=== PATIENT | male | born 1950 | race Caucasian/White ===

== ENCOUNTER 2023-12-03 14:45 | Outpatient (AMB) | payer MEDICARE, SELFPAY ==
[2023-12-03 15:26] VITALS: BP 108/62; PULSE 87; RESP 13; O2SAT 98; BMI 23.1
--- NOTE | 2023-12-03 15:26 | A.OFFPC_ITS ---
Vital Signs 12/03/23 15:26 Height 5 ft 6 in Weight 143 lb 6 oz BMI 23.1 BP 108/62 Blood Pressure Location Rt brachial Position Sitting Respiration 13 Pulse 87 Pulse Source Pulse Oximeter Pulse Oximetry (%) 98 Oxygen Delivery Method Room Air Intake Visit Reasons: Establish Care never been seen Intake Note: Patient is here to establish care. Patient did not express any concerns. 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 Offset Required: No Accompanied by: Self / Same As Patient Allergies No Known Allergies Allergy (Verified 12/03/23 15:29) Tobacco use date assessed: 12/03/23 Fall risk assessment: No Falls in past year Dental Screening Dental Screen Date: 12/03/23 Did you have a dental visit in the last 12 months?: Yes Did you have a dental problem in the last 6 months where you did not have access to dental care?: No Was dental information given to patient?: Patient has dentist HPI HPI Comments History of Present Illness Details 73 year old male with a past medical his tory of prostate cancer presenting to establish care. Transferring from [facility] No current issues. Feeling well. UTD physical exam. UTD psa testing ROS CONSTITUTIONAL: Denies weight loss, fever and chills. HEENT: Denies changes in vision and hearing. RESPIRATORY: Denies SOB and cough. CV: Denies palpitations and CP GI: Denies abdominal pain, nausea, vomiting and diarrhea. : Denies dysuria and urinary frequency. MSK: Denies new myalgia and joint pain. SKIN: Denies rash and pruritus. NEUROLOGICAL: Denies headache PSYCHIATRIC: Denies recent changes in mood. PHYSICAL EXAM: GENERAL: Alert and oriented x 3. NAD EYES: EOMI. Anicteric. HENT: Moist mucous membranes. No scleral icterus. No cervical lymphadenopathy. LUNGS: Clear to auscultation bilaterally. CARDIOVASCULAR: Regular rate and rhythm. No murmur. No JVD. ABDOMEN: Soft, non-tender +bs EXTREMITIES: No edema. Non-tender. SKIN: No rashes or lesions. Warm. NEUROLOGIC: No focal neurological deficits. CN II-XII grossly intact PSYCHIATRIC: Cooperative. Appropriate mood and affect [facility] Medical History (Updated 12/08/23 @ 10:09 by Genia Reyes MD) Prostate cancer Chronic GERD Surgical History History of hernia repair History of prostate surgery Family History Other No pertinent family history Social History Household Members: Spouse Housing: House 75 years or older and lives alone: No Alcohol intake: current Alcohol intake frequency: holidays/special occasions only Patient Tobacco Use Status: Never used Tobacco e-Cigarette/Vaping Use: Never Used service: No Current occupational status: retired Cognitive needs: No Hearing needs: No Vision needs: No Questionnaire PHQ-9 Over the last 2 weeks, how often have you been bothered by any of the following problems? 1. Little interest or pleasure in doing things: not at all 2. Feeling down, depressed, or hopeless: not at all 3. Trouble falling or staying asleep, or sleeping too much: not at all 4. Feeling tired or having little energy: not at all 5. Poor appetite or overeating: not at all 6. Feeling bad about yourself - or that you are a failure or have let yourself or your family down: not at all 7. Trouble concentrating on things, such as reading the newspaper or watching television: not at all 8. Moving or speaking so slowly that other people could have noticed. Or the opposite - being so fidgety or restless that you have been moving around a lot more than usual: not at all 9. Thoughts that you would be better off or of hurting yourself in some way: not at all Total score: 0 Depression Screening Interpretation: Negative Depression Screening Done: Yes 74947 - PHQ-9 Billing: Yes Source: Developed by Drs. Jose Roberto Miranda, Magui Bob, Luis Galindo and colleagues, with an educational davian from [employer]. Thrive Questionnaire Date Thrive assessed: 12/03/23 I am a: Patient What is your living situation today?: I have a steady place to live Within the past 12 months, did the food you bought not last and you didn't have the money to get more?: Never true Within the past 12 months, did you worry whether your food would run out before you got money to buy more?: Never true Do you have trouble paying for medicines?: No Do you have trouble getting transportation to medical appointments?: No Do you have trouble paying your heating and electricity bill?: No Do you have trouble taking care of your child, family member or friend?: No Do you have trouble with day-to-day activities such as bathing, preparing meals, shopping, managing finances, etc.?: No Are you currently unemployed and looking for a job?: No Are you interested in more education?: No Please select the resources that you would like help with: None Currently or been in a relationship where the following occur: No concerns reported THRIVE Score: 0 AUDIT C Alcohol Use Questionnaire (AUDIT-C) 1. How often do you have a drink containing alcohol?: Never 3. How often do you have six or more drinks on one occasion?: Never Total Score: 0 DORIS-7 AMB Questionnaire DORIS-7 Date DORIS - 7 assessed: 12/03/23 Feeling nervous, anxious, or on edge: 0 = Not at all Not being able to stop or control worryin = Not at all Worrying too much about different things: 0 = Not at all Trouble relaxin = Not at all Being so restless that it is hard to sit still: 0 = Not at all Becoming easily annoyed or irritable: 0 = Not at all Feeling afraid as if something awful might happen: 0 = Not at all Total DORIS-7 score (0-4 normal; 5-9 mild; 10-14 moderate; 15-21 severe): 0 Source: Developed by Drs. Jose Roberto Miranda, Magui Bob, Luis Galindo and colleagues, with an educational davian from [employer]. DORIS-7 Assessment Billing DORIS-7 Assessment Tool: DORIS-7 Assessment 09372 Physical exam (Primary Care) Vital Signs: Last Vital Signs Pulse 87 12/03/23 15:26 Resp 13 12/03/23 15:26 BP 108/62 12/03/23 15:26 Pulse Ox 98 12/03/23 15:26 Oxygen Delivery Method Room Air 12/03/23 15:26 BMI result Body Mass Index 23.1 Tobacco/Smoking Status: Tobacco use Status Tobacco use date assessed 12/03/23 12/03/23 15:34 Patient Tobacco Use Status Never used Tobacco 12/03/23 15:38 e-Cigarette/Vaping Use Never Used 12/03/23 15:38 PHQ-9: PHQ-9 Score PHQ-9: Total score 0 12/03/23 16:20 Depression Screening Interpretation: Negative Thrive Assessment: Date of Thrive Assessment Date Thrive assessed 12/03/23 12/03/23 15:34 Currently or been in a relationship where the following occur: No concerns reported Assessment and Plan Assessment & Plan (1) History of prostate cancer: Code(s): Z85.46 - Personal history of malignant neoplasm of prostate Plan: monitor psa. utd (2) Chronic GERD: Code(s): K21.9 - Gastro-esophageal reflux disease without esophagitis (3) Encounter to establish care: Code(s): Z76.89 - Persons encountering health services in other specified circumstances Plan 73 y/o to establish care. Past medical, surgical, social and family history reviewed. chart updated Coding Level of Care Code New Pt Level 4 (97460) Diagnoses History of prostate cancer Z85.46 Chronic GERD K21.9 Encounter to establish care Z76.89 Additional Codes DORIS-7 Assessment Billing - DORIS-7 Assessment Tool: DORIS-7 Assessment 43764 ([id number])
== END 2023-12-03 16:34 | disposition home or self-care (01) ==
PROVIDERS: PCP Internal Medicine; Visit Provider Internal Medicine
DX: K21.9 Gastro-esophageal reflux disease without esophagitis (principal); Z85.46 Personal history of malignant neoplasm of prostate; Z76.89 Persons encountering health services in other specified circumstances
CPT/HCPCS: 99203

== ENCOUNTER 2024-11-02 15:54 | Outpatient (AMB) | payer MEDICARE, SELFPAY ==
--- NOTE | 2024-11-02 16:00 | A.OFFPC_ITS ---
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 Required: No Allergies No Known Allergies Allergy (Verified 11/02/24 16:01) Tobacco use date assessed: 11/02/24 Fall risk assessment: No Falls in past year Last assessed Fall Risk: 11/02/24 Dental Screening Dental Screen Date: 11/02/24 Did you have a dental visit in the last 12 months?: Yes Did you have a dental problem in the last 6 months where you did not have access to dental care?: No Was dental information given to patient?: Patient has dentist HPI HPI Comments History of Present Illness Details 74 year old male with a past medical his tory of prostate cancer, neck pain, prediabetes, hyperlipidemia presenting for follow up Due for labs. History of prediabetes Follows with dermatology, Dr Hills. History of prostate cancer s/p prostatectomy 2008. Td due 12/2030 Colonoscopy 03/13/2023-[facility] ROS CONSTITUTIONAL: Denies weight loss, fever and chills. HEENT: Denies changes in vision and hearing. RESPIRATORY: Denies SOB and cough. CV: Denies palpitations and CP GI: Denies abdominal pain, nausea, vomiting and diarrhea. : Denies dysuria and urinary frequency. MSK: Denies new myalgia and joint pain. SKIN: Skin tag right scrotum NEUROLOGICAL: Denies headache PSYCHIATRIC: Denies recent changes in mood. PHYSICAL EXAM: GENERAL: Alert and oriented x 3. NAD EYES: EOMI. Anicteric. HENT: Moist mucous membranes. No scleral icterus. No cervical lymphadenopathy. LUNGS: Clear to auscultation bilaterally. CARDIOVASCULAR: Regular rate and rhythm. No murmur. No JVD. ABDOMEN: Soft, non-tender +bs EXTREMITIES: No edema. Non-tender. SKIN: No rashes or lesions. Warm. NEUROLOGIC: No focal neurological deficits. CN II-XII grossly intact PSYCHIATRIC: Cooperative. Appropriate mood and affect [facility] Medical History Prostate cancer Chronic GERD Surgical History H/O colonoscopy History of hernia repair History of prostate surgery Family History Other No pertinent family history Social History Household Members: Spouse Housing: House 75 years or older and lives alone: No Alcohol intake: current Alcohol intake frequency: holidays/special occasions only Patient Tobacco Use Status: Never used Tobacco e-Cigarette/Vaping Use: Never Used Second Hand Smoke Exposure: Yes (past as a kid) service: No Current occupational status: retired Cognitive needs: No Hearing needs: No Vision needs: No Questionnaire PHQ-9 Over the last 2 weeks, how often have you been bothered by any of the following problems? 1. Little interest or pleasure in doing things: not at all 2. Feeling down, depressed, or hopeless: not at all 3. Trouble falling or staying asleep, or sleeping too much: not at all 4. Feeling tired or having little energy: not at all 5. Poor appetite or overeating: not at all 6. Feeling bad about yourself - or that you are a failure or have let yourself or your family down: not at all 7. Trouble concentrating on things, such as reading the newspaper or watching television: not at all 8. Moving or speaking so slowly that other people could have noticed. Or the opposite - being so fidgety or restless that you have been moving around a lot m ore than usual: not at all 9. Thoughts that you would be better off or of hurting yourself in some way: not at all Total score: 0 Depression Screening Interpretation: Negative Depression Screening Done: Yes 76245 - PHQ-9 Billing: Yes Source: Developed by Drs. Jose Roberto Miranda, Magui Bob, Luis Galindo and colleagues, with an educational davian from [employer]. Thrive Questionnaire Date Thrive assessed: 10/26/24 I am a: Patient What is your living situation today?: I have a steady place to live Within the past 12 months, did the food you bought not last and you didn't have the money to get more?: Never true Within the past 12 months, did you worry whether your food would run out before you got money to buy more?: Never true Do you have trouble paying for medicines?: No Do you have trouble getting transportation to medical appointments?: No Do you have trouble paying your heating and electricity bill?: No Do you have trouble taking care of your child, family member or friend?: No Do you have trouble with day-to-day activities such as bathing, preparing meals, shopping, managing finances, etc.?: No Are you currently unemployed and looking for a job?: No Are you interested in more education?: No Please select the resources that you would like help with: None Currently or been in a relationship where the following occur: No concerns reported THRIVE Score: 0 AUDIT C Alcohol Use Questionnaire (AUDIT-C) 1. How often do you have a drink containing alcohol?: 2-3 times a week 2. How many drinks containing alcohol do you have on a typical day when you are drinking?: 1 or 2 3. How often do you have six or more drinks on one occasion?: Never Total Score: 3 DORIS-7 AMB Questionnaire DORIS-7 Date DORIS - 7 assessed: 11/02/24 Feeling nervous, anxious, or on edge: 0 = Not at all Not being able to stop or control worryin = Not at all Worrying too much about different things: 0 = Not at all Trouble relaxin = Not at all Being so restless that it is hard to sit still: 0 = Not at all Becoming easily annoyed or irritable: 0 = Not at all Feeling afraid as if something awful might happen: 0 = Not at all Total DORIS-7 score (0-4 normal; 5-9 mild; 10-14 moderate; 15-21 severe): 0 Source: Developed by Drs. Jose Roberto Miranda, Magui Bob, Luis Galindo and colleagues, with an educational davian from [employer]. DORIS-7 Assessment Billing DORIS-7 Assessment Tool: DORIS-7 Assessment 79189 Physical exam (Primary Care) Vital Signs: Last Vital Signs Pulse 86 11/02/24 16:03 Resp 12 11/02/24 16:03 BP 136/56 L 11/02/24 16:03 Pulse Ox 96 11/02/24 16:03 Oxygen Delivery Method Room Air 11/02/24 16:03 BMI result Body Mass Index 22.8 Tobacco/Smoking Status: Tobacco use Status Tobacco use date assessed 11/02/24 11/02/24 16:12 Patient Tobacco Use Status Never used Tobacco 11/02/24 16:12 e-Cigarette/Vaping Use Never Used 11/02/24 16:12 PHQ-9: PHQ-9 Score PHQ-9: Total score 0 11/02/24 16:19 Depression Screening Interpretation: Negative Thrive Assessment: Date of Thrive Assessment Date Thrive assessed 10/26/24 11/02/24 16:12 Currently or been in a relationship where the following occur: No concerns reported Coding Level of Care Code Est Pt Prev Care >65y(89509) Diagnoses Prediabetes R73.03 Hyperlipidemia, unspecified hyperlipidemia type E78.5 Hyperlipidemia type: unspecified Chronic GERD K21.9 History of prostate cancer Z85.46 Additional Codes DORIS-7 Assessment Billing - DORIS-7 Assessment Tool: DORIS-7 Assessment 18962 ([id number]) PHQ-9 - 21210 - PHQ-9 Billing: Yes ([id number]) Assessment & Plan Assessment & Plan (1) Prediabetes: Code(s): R73.03 - Prediabetes Category: Medical (2) Hyperlipidemia: Code(s): E78.5 - Hyperlipidemia, unspecified Category: Medical Qualifiers: Hyperlipidemia type: unspecified Qualified Code(s): E78.5 - H yperlipidemia, unspecified (3) Chronic GERD: Code(s): K21.9 - Gastro-esophageal reflux disease without esophagitis Category: Medical (4) History of prostate cancer: Code(s): Z85.46 - Personal history of malignant neoplasm of prostate Category: Medical Plan 74 year old for physical exam Continue dermatology psa for follow up prostate cancer HLD, prediabetes-labs ordered. Orders: Orders Hemoglobin A1c Today E78.5 - Hyperlipidemia, unspecified, K21.9 - Gastro- esophageal reflux disease without esophagitis, R73.03 - Prediabetes, Z85.46 - Personal history of malignant neoplasm of prostate Complete Blood Count Auto Diff Today E78.5 - Hyperlipidemia, unspecified, K21.9 - Gastro-esophageal reflux disease without esophagitis, R73.03 - Prediabetes, Z85.46 - Personal history of malignant neoplasm of prostate Comprehensive Met. Panel Today E78.5 - Hyperlipidemia, unspecified, K21.9 - Gastro-esophageal reflux disease without esophagitis, R73.03 - Prediabetes, Z85.46 - Personal history of malignant neoplasm of prostate Prostate Specific Antigen Today E78.5 - Hyperlipidemia, unspecified, K21.9 - Gastro-esophageal reflux disease without esophagitis, R73.03 - Prediabetes, Z85.46 - Personal history of malignant neoplasm of prostate Lipid Panel Today E78.5 - Hyperlipidemia, unspecified, K21.9 - Gastro- esophageal reflux disease without esophagitis, R73.03 - Prediabetes, Z85.46 - Personal history of malignant neoplasm of prostate
[2024-11-02 16:03] VITALS: BP 136/56; PULSE 86; RESP 12; O2SAT 96; BMI 22.8
== END 2024-11-02 16:31 | disposition home or self-care (01) ==
LOC: HO.HMCFM 15:54
PROVIDERS: PCP Internal Medicine; Visit Provider Internal Medicine
DX: Z00.00 Encounter for general adult medical examination without abnormal findings (principal); R73.03 Prediabetes; E78.5 Hyperlipidemia, unspecified; K21.9 Gastro-esophageal reflux disease without esophagitis; Z85.46 Personal history of malignant neoplasm of prostate

== ENCOUNTER → 2024-11-02 15:54 | Outpatient (BNVA) | payer MEDICARE, SELFPAY | PROVIDERS: PCP Internal Medicine; Visit Provider Internal Medicine | DX: E78.5 Hyperlipidemia, unspecified (principal); R73.03 Prediabetes; K21.9 Gastro-esophageal reflux disease without esophagitis; Z85.46 Personal history of malignant neoplasm of prostate | CPT/HCPCS: 96127; 99397 ==

== ENCOUNTER 2024-11-06 09:58 | Outpatient (REF) | payer MEDICARE, SELFPAY ==
[2024-11-06 11:17] LABS: MANUAL DIFF FLAG NO
[2024-11-06 11:25] LABS: Basophils Absolute Auto 0.1 X10*3/uL (0.0-0.2); Basophils Percent Auto 0.9 % (0-2); Eosinophils Absolute Auto 0.3 X10*3/uL (0.0-0.4); Eosinophils Percent Auto 3.4 % (0-4); Hematocrit 40.8 % (42.0-52.0); Hemoglobin 14.1 g/dl (14.0-18.0); Imm Gran Abs Auto 0.04 X10*3/uL (0.00-0.03); Imm Gran Pct Auto 0.5 % (0.0-0.4); Lymphocytes Absolute Auto 1.5 X10*3/uL (1.2-4.9); Lymphocytes Percent Auto 20.4 % (20-40); Mean Corpuscular HGB Conc 34.6 g/dl (31.0-36.0); Mean Corpuscular Hemoglobin 29.7 pg (27.0-33.0); Mean Corpuscular Volume 86.1 fL (80.0-98.0); Mean Platelet Volume 10.8 fL (9.4-12.4); Monocytes Absolute Auto 0.6 X10*3/uL (0.1-1.2); Monocytes Percent Auto 7.9 % (2-11); Neutrophils Percent Auto 66.9 % (45-73); Platelet Count 182 X10*3/uL (160-400); Red Blood Count 4.74 X10*6/uL (4.60-5.80); Red Cell Distribution Width 12.7 % (11.0-16.0); White Blood Count 7.4 X10*3/uL (4.8-10.8)
[2024-11-06 11:31] LABS: Estimated Average Glucose 97 mg/dL
[2024-11-06 12:17] LABS: Alanine Aminotransferase 22 U/L (0-40); Albumin Level 4.2 g/dL (3.5-5.0); Alkaline Phosphatase 49 U/L (39-117); Anion Gap 9 (12-20); Aspartate Amino Transferase 26 U/L (5-37); Bilirubin Total 0.7 mg/dL (0.0-1.0); Blood Urea Nitrogen 15 mg/dL (9-16); Calcium 9.5 mg/dL (8.4-10.2); Carbon Dioxide 28 mmol/L (22-29); Chloride 106 mmol/L (96-108); Cholesterol 214 mg/dL (<200); Estimated Glomerular Filt Rate > 60; Glucose Random 84 mg/dL (60-115); HDL Cholesterol 54 mg/dL (>40); LDL Cholesterol Calculated 135 mg/dL (<100); Sodium 139 mmol/L (135-145); Total Protein 6.5 g/dL (6.5-8.0); Triglycerides 129 mg/dL (<150)
[2024-11-06 12:42] LABS: Prostate Specific Antigen < 0.10 ng/mL (<0.05-4.0)
== END 2024-11-06 09:59 | disposition home or self-care (01) ==
LOC: HO.WFDLDS 09:58
PROVIDERS: Visit Provider Internal Medicine
DX: Z85.46 Personal history of malignant neoplasm of prostate (principal); K21.9 Gastro-esophageal reflux disease without esophagitis; E78.5 Hyperlipidemia, unspecified; R73.03 Prediabetes; Z12.5 Encounter for screening for malignant neoplasm of prostate
CPT/HCPCS: 36415; 80053; 80061; 83036; 84153; 85025

== ENCOUNTER 2025-02-11 09:52 | Outpatient (REF) | payer MEDICARE, SELFPAY ==
[2025-02-11 14:22] LABS: MANUAL DIFF FLAG NO
[2025-02-11 14:28] LABS: Hematocrit 41.1 % (42.0-52.0); Hemoglobin 14.3 g/dl (14.0-18.0); Imm Gran Abs Auto 0.04 X10*3/uL (0.00-0.03); Imm Gran Pct Auto 0.5 % (0.0-0.4); Lymphocytes Absolute Auto 1.4 X10*3/uL (1.2-4.9); Mean Corpuscular HGB Conc 34.8 g/dl (31.0-36.0); Mean Corpuscular Hemoglobin 30.0 pg (27.0-33.0); Mean Corpuscular Volume 86.2 fL (80.0-98.0); NRBC Abs Auto 0.000 X10*3/uL (0.0-0.012); NRBC Pct Auto 0.0 /100WBC (0.0-0.2); Platelet Count 207 X10*3/uL (160-400); Red Blood Count 4.77 X10*6/uL (4.60-5.80); White Blood Count 7.5 X10*3/uL (4.8-10.8)
[2025-02-11 14:52] LABS: Alanine Aminotransferase 22 U/L (0-40); Albumin Level 4.4 g/dL (3.5-5.0); Alkaline Phosphatase 51 U/L (39-117); Anion Gap 12 (12-20); Aspartate Amino Transferase 28 U/L (5-37); Blood Urea Nitrogen 12 mg/dL (9-16); Calcium 9.4 mg/dL (8.4-10.2); Carbon Dioxide 28 mmol/L (22-29); Chloride 104 mmol/L (96-108); Estimated Glomerular Filt Rate > 60; Potassium 4.0 mmol/L (3.3-5.1); Sodium 140 mmol/L (135-145); Total Protein 6.8 g/dL (6.5-8.0)
[2025-02-12 05:18] LABS: Immunoglobulin A 155 mg/dL (70-320)
[2025-02-12 21:33] LABS: Transglutaminase Ab IgG <1.0 U/mL
== END 2025-02-11 09:53 | disposition home or self-care (01) ==
LOC: HO.WFDLDS 09:52
PROVIDERS: PCP Internal Medicine; Visit Provider Physician Assistant
DX: R19.7 Diarrhea, unspecified (principal)
CPT/HCPCS: 36415; 80053; 82784; 85025; 86140; 86231; 86364; 99212

== ENCOUNTER 2025-02-11 09:52 | Outpatient (AMB) | payer MEDICARE, SELFPAY ==
--- NOTE | 2025-02-11 09:59 | MHC.PC.OV ---
Vital Signs 02/11/25 10:01 Height 5 ft 6 in Weight 159 lb BMI 25.7 BP 116/74 Blood Pressure Location Lt brachial Position Sitting Respiration 12 Pulse 68 Pulse Source Pulse Oximeter Temp 98.1 F Temp Source Oral Pulse Oximetry (%) 98 Oxygen Delivery Method Room Air Intake Visit Reasons: Loose, watery stool in the am for 4 weeks Intake Note: Loose,watery stool for the past 30 days. 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 He normally follows with Dr. Reyes. GI: States today that he has had watery stool in the morning for the last 4 weeks. He states as soon as he gets up in the morning he has to use the bathroom 2-3 x a day. No pain in the abdomen, n/v. He went to a walk in clinic and was instructed to see GI. He states that no one has called him from the GI department. He has not changed his diet. No change in appetite. No weight loss. He was not sick prior to symptoms started. He has not traveled. He can not recall the last time he has taken any antibiotics. No contacts with similar symptoms. Colonoscopy was in 2022. [facility] Medical History Prostate cancer Chronic GERD Surgical History H/O colonoscopy History of hernia repair History of prostate surgery Family History Other No pertinent family history Social History Household Members: Spouse Housing: House 75 years or older and lives alone: No Alcohol intake: current Alcohol intake frequency: holidays/special occasions only Patient Tobacco Use Status: Never used Tobacco e-Cigarette/Vaping Use: Never Used Second Hand Smoke Exposure: Yes (past as a kid) service: No Current occupational status: retired Cognitive needs: No Hearing needs: No Vision needs: No Questionnaire Thrive Questionnaire Date Thrive assessed: 10/26/24 I am a: Patient What is your living situation today?: I have a steady place to live Within the past 12 months, did the food you bought not last and you didn't have the money to get more?: Never true Within the past 12 months, did you worry whether your food would run out before you got money to buy more?: Never true Do you have trouble paying for medicines?: No Do you have trouble getting transportation to medical appointments?: No Do you have trouble paying your heating and electricity bill?: No Do you have trouble taking care of your child, family member or friend?: No Do you have trouble with day-to-day activities such as bathing, preparing meals, shopping, managing finances, etc.?: No Are you currently unemployed and looking for a job?: No Are you interested in more education?: No Please select the resources that you would like help with: None Currently or been in a relationship where the following occur: No concerns reported THRIVE Score: 0 AUDIT C Alcohol Use Questionnaire (AUDIT-C) 1. How often do you have a drink containing alcohol?: 4 or more times a week 2. How many drinks containing alcohol do you have on a typical day when you are drinking?: 1 or 2 3. How often do you have six or more drinks on one occasion?: Never Total Score: 4 DORIS-7 AMB Questionnaire DORIS-7 Date DORIS - 7 assessed: 11/02/24 Source: Developed by Drs. Jose Roberto Miranda, Magui Bob, Luis Galindo and colleagues, with an educational davian from [employer]. Physical exam (Primary Care) Vital Signs: Last Vital Signs Temp 98.1 F 02/11/25 10:01 Pulse 68 02/11/25 10:01 Resp 12 02/11/25 10:01 BP 116/74 02/11/25 10:01 Pulse Ox 98 02/11/25 10:01 Oxygen Delivery Method Room Air 02/11/25 10:01 BMI result Body Mass Index 25.7 Tobacco/Smoking Status: Tobacco use Status Tobacco use date assessed 11/02/24 11/02/24 16:12 Patient Tobacco Use Status Never used Tobacco 11/02/24 16:12 e-Cigarette/Vaping Use Never Used 11/02/24 16:12 Thrive Assessment: Date of Thrive Assessment Date Thrive assessed 10/26/24 11/02/24 16:12 Currently or been in a relationship where the following occur: No concerns reported Const Orientation/consciousness: patient oriented x3 HENMT Ears: hearing grossly normal bilaterally Neck Thyroid: Thyroid normal Lymphatic: no lymphadenopathy noted Resp Auscultation: clear to auscultation bilaterally Cardio Rate: regular rate Rhythm: regular rhythm Heart sounds: S1 normal heart sound present and S2 normal heart sound present GI Inspection: Yes normal to inspection Palpation (GI): Soft to palpation and Other GI palpation findings present (nontender, no cva tenderness) Auscultation: normoactive bowel sounds Rectal Exam - Male: Yes deferred Skin General skin exam: no rashes or lesions noted Neuro General: patient oriented x3, gait normal and no focal motor deficits Coding Level of Care Code Est Pt Level 4 (94375) Complex EM visit Add On G2211 Diagnoses Diarrhea R19.7 Assessment & Plan Assessment & Plan (1) Diarrhea: Code(s): R19.7 - Diarrhea, unspecified Category: Medical Plan: Advised to try the brat diet for a week or 2 and if symptoms still resolve return back to the office Labs ordered today Stool studies ordered Abdominal exam is benign. He will let me know if anything worsens or changes. I have referred him to GI. Orders: Orders Comprehensive Met. Panel Today R19.7 - Diarrhea, unspecified Complete Blood Count Auto Diff Today R19.7 - Diarrhea, unspecified Calprotectin, Fecal Today R19.7 - Diarrhea, unspecified Transglutaminase Ab IgG Today R19.7 - Diarrhea, unspecified CDiff Gene PCR Today R19.7 - Diarrhea, unspecified Cyclospora & Isospora Stool Today R19.7 - Diarrhea, unspecified C Reactive Protein Today R19.7 - Diarrhea, unspecified Endomysial IgA rflx Titer Today R19.7 - Diarrhea, unspecified Immunoglobulin A Today R19.7 - Diarrhea, unspecified Ova and Parasite Today R19.7 - Diarrhea, unspecified Giardia Ag Stool EIA Today R19.7 - Diarrhea, unspecified Referrals Gastroenterology Referral R19.7 - Diarrhea, unspecified
[2025-02-11 10:01] VITALS: BP 116/74; PULSE 68; RESP 12; TEMP 36.7; O2SAT 98; BMI 25.7
--- OUTSIDE RECORDS SUMMARY | 2025-02-11 11:41 | XMS_ITS | Clinical Summary ---
Author Organization [facility] Address [address] [place] [address] Care Team Providers Care Net Architect Name Role Phone Eileen Garcia MD Primary Care Provider Allergies No known active allergies Medications triamcinolone (KENALOG) 0.1 % dental paste Use on canker sore daily for 5days. 08/03/2021 Active cholecalciferol (VITAMIN D-3) 25 mcg (1,000 unit) tablet Take 1,000 Units by mouth daily. Active ibuprofen (ADVIL,MOTRIN) 50 mg tablet Take 600 mg by mouth 3 times daily as needed. Active turmeric root extract 500 mg capsule Take 500 mg by mouth 2 times daily. Active magnesium 250 mg tablet Take 250 mg by mouth 2 times daily. Active ZINC ORAL Take 50 mg by mouth daily. Active multivitamin with minerals (MULTIPLE VITAMIN-MINERALS ORAL) Take by mouth daily. Active vitamin B complex (B COMPLEX-VITAMIN B12 ORAL) Take by mouth daily. Active omega-3 (FISH OIL) 360-1,200 mg capsule Take 1,200 mg by mouth daily. Active coenzyme Q-10 100 mg capsule Take 100 mg by mouth daily. Active selenium 200 mcg tablet Take 200 mcg by mouth. 4 times week Active Active Problems Problem Noted Date Diagnosed Date Canker sores oral 08/03/2021 Prediabetes 04/09/2016 Spondylitis, cervical (CMS/HCC V24) 03/06/2016 Hyperglycemia 01/18/2016 Hyperlipidemia 03/22/2015 GERD (gastroesophageal reflux disease) 5 Erectile dysfunction 03/22/2015 Eczema 03/22/2015 Encounters Date Type Department Care Team Description 01/22/2025 Telephone Internal Medicine - [facility] [address] [facility] [place] [address] Beth DeaSAJI from Last 3 Months Immunizations Name Administration Dates Next Due Influenza trivalent, 0.5mL (Fluad) 65yo and olde r 03/28/2018,03/07/2015 Influenza trivalent, 0.5mL, preservative free (Fluarix; FluLaval; Fluzone) ages 6mo and older (Afluria) 3 years and older 03/12/2017,03/30/2016 Pneumococcal conjugate 13 va lent (Prevnar 13, PCV13) 2mo and older 06/09/2015 Pneumococcal polysaccharide 23 valent (Pneumovax 23) 2yo and older 02/18/2014 Td Tetanus diptheria (Tdvax) 7yo and older 12/27,05/22/2005 Tdap Tetanus diptheria acell ular pertussis (Boostrix; Adacel) 7yo and older 11/28/2010 Zoster Live 06/03/2010 Surgical History Surgery Date Site/Laterality Comments VASECTOMY PROCEDURE: HISTORICAL VASECTOMY COLONOSCOPY 5 PROCEDURE: HISTORICAL COLONOSCOPY; COMMENT: adenomatous polyps,, repeat 5 years COLONOSCOPY 12/23/2017 PROCEDURE: HISTORICAL COLONOSCOPY; COMMENT: tubular adenoma PROSTATECTOMY 02/2009 PROCEDURE: PROSTATECTOMY; COMMENT: prostate cancer Medical History Medical History Date Comments Hyperlipidemia 03/22/2015 DX:Hyperlipidemi a GERD (gastroesophageal reflux disease) 5 DX:GERD (gastroesophageal reflux disease) Erectile dysfunction 03/22/2015 DX:Erectile dysfunction Eczema 03/22/2015 DX:Eczema History of prostate cancer 03/22/2015 DX:Hi story of prostate cancer; COMMENT: 2008 cate 7, radical prostatectomy 02/09 Family History Medical History Relation Name Comments Colon cancer Other second degree r elatives Relation Name Status Comments Other Social History Tobacco Use Types Packs/Day Years Used Date Smoking Tobacco: Never Smokeless Tobacco: Never Alcohol Use Standard Drinks/Week Comments Yes 11.7 (1 standard drink = 0.6 oz pure alcohol) Sex and Gender Information Value Date Recorded Sex Assigned at Not on file Legal Sex Male 2:09 PM EST Gender Identity Not on file Sexual Orientation Not on file Obstetrics History Last Filed Vital Signs Vital Sign Reading Time Taken Comments Blood Pressure 118/80 10/17/2023 9:11 AM EDT Pulse 80 10/17/2023 9:11 AM EDT Temperature - - Respiratory Rate - - Oxygen Saturation - - Inhaled Oxygen Concentration - - Weight 66.2 kg (146 lb) 10/17/2023 9:11 AM EDT Height 167.6 cm (5' 6 ) 10/17/2023 9:11 AM EDT Body Mass Index 23.56 10/17/2023 9:11 AM EDT Plan of Treatment Health Maintenance Due Date Last Done Comments Zoster Vaccines (2 of 3) 07/29/2010 06/03/2010 Pneumococcal Vaccine: 50+ Years (3 of 3 - PCV20 or PCV21) 06/09/2020 06/09/2015, 02/18/2014 Abdominal Aortic Aneurysm (AAA) Screen 05/13/2022 Falls Risk Assessment 05/13/2022 Social Influencers of Health Screening 05/13/2022 RSV Immunization Adult Patients (1 - 1-dose 75+ series) 2024 Depression Screening 06/03/2024 COVID-19 Vaccine ( - 2023- season) 2025 Influenza Vaccine (#1) 2025 8, 03/12/2017, 03/30/2016, Additional history exists Colorectal Cancer Screening: Colonoscopy 03/13/2028 03/13/2023 Cholesterol Screening (Lipid Panel) 11/03/2028 11/04/2023, 11/04/2023 DTaP,Tdap,and Td Vaccines (4 - Td or Tdap) 12/27/2030 12/27/2020, 11/28/2010, 05/22/2005 Hepatitis C Screening Completed 05/03/2015 HIB Vaccines Aged Out No longer eligi ble based on patient's age to complete this topic HPV Vaccines Aged Out No longer eligi ble based on patient's age to complete this topic Hepatitis A Vaccines Aged Out No long er eligible based on patient's age to complete this topic Hepatitis B Vaccines Aged Out No long er eligible based on patient's age to complete this topic IPV Vaccines Aged Out No longer eligi ble based on patient's age to complete this topic MMR Vaccines Aged Out No longer eligi ble based on patient's age to complete this topic Meningococcal ACWY Vaccine Aged Out N o longer eligible based on patient's age to complete this topic Meningococcal B Vaccine Aged Out No l onger eligible based on patient's age to complete this topic RSV Immunization Patients Under 20 months Aged Out No longer eligible based on patient's age to complete this topic Varicella Vaccines Aged Out No longer eligible based on patient's age to complete this topic Procedures Procedure Name Priority Date/Time Associated Diagnosis Comments LIPID PANEL Routine 11/04/2023 COLONOSCOPY Routine 03/13/2023 HEPATITIS C SCREENING Routine 05/03/2015 from Last 3 Months or Most Recently Relevant to Health Maintenance Results * (ABNORMAL) Lipid panel (11/04/2023) LDL/HDL Ratio 4 0 - 4 Triglycerides 55 0 - 150 mg/dL Cholesterol 217(A) 0 - 200 mg/dL HDL 61 >=40 mg/dL LDL Cholesterol 145(A) 0 - 100 mg/dL Blood Venous blood specimen / Unknown Historical Provider LAB BLOOD ORDERABLES Cindy l Result * Colonoscopy (03/13/2023) Colonoscopy No interpretation , abstracted Anatomical Region Laterality Modality Other [facility] Provider HEALTH MAINTENANCE Final Result * Hepatitis C Screening (05/03/2015) Hepatitis C Screening Abstracted Historical Provider HEALTH MAINTENANCE Final Result from Last 3 Months or Most Recently Relevant to Health Maintenance Care Teams Net Architect Relationship Specialty Start Date End Date Eileen Garcia MD [address] [place] [address] [address] [place] [address] PCP - General Internal Medicine 06/13/21
--- OUTSIDE RECORDS SUMMARY | 2025-02-11 11:41 | XMS_ITS | Encounter Summary ---
Author Organization [facility] Address [address] [place] [address] Care Team Providers Care Laborer Salvage Name Role Phone Eileen Garcia MD Primary Care Provider Reason for Visit * Reason Onset Date Comments Medicare Annual Wellness Visit Subsequent 2024 PE DUE after 10/16/2024 Encounter Details Date Type Department Care Team (Late st Contact Info) Description 01/22/2025 Telephone Internal Medicine - [place] [address] [facility] [place] [phone] Dea Campos MA Social History Tobacco Use Types Packs/Day Years Used Date Smoking Tobacco: Never Smokeless Tobacco: Never Alcohol Use Standard Drinks/Week Comments Yes 11.7 (1 standard drink = 0.6 oz pure alcohol) Sex and Gender Information Value Date Recorded Sex Assigned at Not on file Legal Sex Male 2:09 PM EST Gender Identity Not on file Sexual Orientation Not on file documented as of this encounter Progress Notes * Dea Campos MA - 01/22/2025 3:42 PM EDT Message left for patient to contact the Quality Department in reference to scheduling an Annual Physical Examination appt w/Dr. Garcia after 10/16/2024. If PT returns my call, please ask if Dr. Garcia is still his PCP. Transfer to Dea Campos @ [id number]. Patient is on the January/2025 report. documented in this encounter Plan of Treatment Not on file documented as of this encounter Visit Diagnoses Not on filedocumented in this encounter Care Teams Laborer Salvage Relationship Specialty Start Date End Date Eileen Garcia MD [address] [place] [address] PCP - General Internal Medicine 06/13/21 documented as of this encounter
== END 2025-02-11 10:18 | disposition home or self-care (01) ==
LOC: HO.HMCFM 09:52
PROVIDERS: PCP Internal Medicine; Visit Provider Physician Assistant
DX: R19.7 Diarrhea, unspecified (principal)

== ENCOUNTER 2025-02-12 14:43 | Outpatient (REF) | payer MEDICARE, SELFPAY ==
--- OUTSIDE RECORDS SUMMARY | 2025-02-12 17:24 | XMS_ITS | Encounter Summary ---
Author Organization [facility] Address [address] [place] [address] Care Team Providers Care Competency Evaluated Nurse Aide Name Role Phone Genia Reyes MD Primary Care Provider [phone] Reason for Visit * Reason Onset Date Comments Medicare Annual Wellness Visit Subsequent 2024 PE DUE after 10/16/2024 Encounter Details Date Type Department Care Team (Late st Contact Info) Description 01/22/2025 Telephone Internal Medicine - [place] [address] [facility] [facility] [place] [address] Dea Campos MA Social History Tobacco Use [...] his PCP. Transfer to Dea Campos @ [id number]. Patient is on the January/2025 report. documented in this encounter Plan of Treatment Upcoming Encounters Date Type Department Care Team (Late st Contact Info) Description 06/08/2025 2:20 PM EST Consult Gastroenterology - [address] [facility] [address] [place] [address] Lawrence Clark MD [address] [facility] [address] [place] [address] documented as of this encounter Visit Diagnoses Not on filedocumented in this encounter Care Teams Competency Evaluated Nurse Aide Relationship Specialty Start Date End Date Genia Reyes MD [address] [place] [id number] PCP - General Internal Medicine 02/11/25 documented as of this encounter
--- OUTSIDE RECORDS SUMMARY | 2025-02-12 17:24 | XMS_ITS | Clinical Summary ---
Author Organization [address] [place] [address] [place] [phone] Phone Care Team Providers Care Per Diem Registered Nurse Name Role Phone Genia Reyes MD Primary Care Provider [phone] Allergies No known active allergies Medications triamcinolone [...] Encounters Date Type Department Care Team Description 02/11/2025 Telephone Gastroenterology [address] [place] [address] Corina Solano MD 01/22/2025 [facility] [address] [place] [address] Dea Campos MA from Last 3 Months Immunizations Name Administration [...] 10/17/2023 9:11 AM EDT Plan of Treatment Upcoming Encounters Date Type Department Care Team (Late st Contact Info) Description 06/08/2025 2:20 PM EST Consult Gastroenterology - [address] [facility] [address] [place] [phone] Lawrence Clark MD [address] [facility] [address] [place] [address] Health Maintenance Due Date Last Done Comments Zoster Vaccines (2 of 3) 07/29/2010 06/03/2010 Pneumococcal Vaccine: 50+ Years (3 of 3 - PCV20 or PCV21) 06/09/2020 06/09/2015, 02/18/2014 Abdominal Aortic Aneurysm (AAA) Screen 05/13/2022 Falls Risk Assessment 05/13/2022 Medicare Annual Wellness Visit 05/13/2022 Social Influencers of Health Screening 05/13/2022 [...] Maintenance Results * (ABNORMAL) Lipid panel (11/04/2023) [facility] LDL/HDL Ratio 4 0 - 4 Triglycerides 55 0 - 150 mg/dL Cholesterol 217(A) 0 - 200 mg/dL HDL 61 >=40 mg/dL LDL Cholesterol 145(A) 0 - 100 mg/dL Blood Venous blood specimen / Unknown Historical Provider LAB BLOOD ORDERABLES Cindy l Result * Colonoscopy (03/13/2023) [facility] Colonoscopy No interpretation , abstracted Anatomical Region Laterality Modality Other Historical Provider HEALTH MAINTENANCE Final Result * Hepatitis C Screening (05/03/2015) [facility] Hepatitis C Screening Abstracted Historical Provider HEALTH MAINTENANCE Final Result from Last 3 Months or Most Recently Relevant to Health Maintenance Insurance [employer] MED[employer] Care Teams Per Diem Registered Nurse Relationship Specialty Start Date End Date Genia Reyes MD [address] [place] [address] [address] [place], [place] [id number] PCP - General Internal Medicine 02/11/25
--- OUTSIDE RECORDS SUMMARY | 2025-02-12 17:24 | XMS_ITS | Encounter Summary ---
Author Organization [facility] Address [address] [place] [address] Care Team Providers Care Material Processor Name Role Phone Genia Reyes MD Primary Care Provider [phone] Reason for Visit * Reason Onset Date Comments appointment 02/11/2025 Encounter Details Date Type Department Care Team (Late st Contact Info) Description 02/11/2025 Telephone Gastroenterology - [place] [address] [place] [phone] Corina Solaon MD [address] [place] [place] [address] Social History Tobacco Use Types Packs/Day Years [...] as of this encounter Progress Notes * Ashtyn Haskins - 02/11/2025 2:11 PM EDT Records received from [facility], consult for diarrhea. Left message & placed call log in folder. Records scanned. documented in this encounter Plan of Treatment Upcoming Encounters Date Type Department Care Team (Late st Contact Info) Description 06/08/2025 2:20 PM EST Consult Gastroenterology - [address] [place] [address] Lawrence Clark MD [address] [address] documented as of this encounter Visit Diagnoses Not on filedocumented in this encounter Care Teams Material Processor Relationship Specialty Start Date End Date Genia Reyes MD [address] [place] [address] [address] [place] [address] PCP - General Internal Medicine 02/11/25 documented as of this encounter
[2025-02-19 19:28] LABS: Calprotectin, Fecal 67 mcg/g
== END 2025-02-12 14:44 | disposition home or self-care (01) ==
LOC: HO.LNP 14:43
PROVIDERS: Visit Provider Physician Assistant
DX: R19.7 Diarrhea, unspecified (principal)
CPT/HCPCS: 83993; 87015; 87177; 87207; 87209; 87329; 87493